=== PATIENT | female | born 1960 | race Caucasian/White ===

== ENCOUNTER 2022-07-03 14:30 | Emergency (ER) | payer BC ==
[2022-07-03 14:56] VITALS: BP 160/93; PULSE 93; RESP 20; TEMP 98; BMI 28.8
[2022-07-03] MEDS ORDERED: CEPHALEXIN MONOHYDRATE 500 MG CAPSULE (UD) PO ONE (15:56)
[2022-07-03] MEDS ORDERED: CEPHALEXIN MONOHYDRATE 500 MG CAPSULE (UD) ONE (16:13)
== END 2022-07-03 16:17 | disposition home or self-care (01) ==
LOC: FER 14:30
DX: I87.2 Venous insufficiency (chronic) (peripheral) (principal); R22.41 Localized swelling, mass and lump, right lower limb; L03.115 Cellulitis of right lower limb
CPT/HCPCS: 73610-TC-RT-FY; 73630-TC-RT-FY; 93971-TC; 99284-25

== ENCOUNTER 2023-01-28 09:21 | Emergency (ER) | payer BC ==
[2023-01-28 09:28] VITALS: BP 160/94; PULSE 87; RESP 16; TEMP 98.8; BMI 28.8
[2023-01-28] MEDS ORDERED: CEPHALEXIN MONOHYDRATE 500 MG CAPSULE (UD) PO ONE (10:57)
[2023-01-28] MEDS ORDERED: CEPHALEXIN MONOHYDRATE 500 MG CAPSULE (UD) ONE (11:22)
== END 2023-01-28 11:27 | disposition home or self-care (01) ==
LOC: FER 09:21
DX: L03.115 Cellulitis of right lower limb (principal); M25.571 Pain in right ankle and joints of right foot; R22.41 Localized swelling, mass and lump, right lower limb
CPT/HCPCS: 73610-TC-RT-FY; 93971-TC; 99284-25